=== PATIENT | female | born 1935 | race Caucasian/White ===

== ENCOUNTER 2016-09-24 20:45 | Emergency (ER) | payer MEDICARE ==
[2016-09-24] MEDS ORDERED: Morphine INJ* 10 MG/ML 1 ML SYRINGE IM ONE ×2 (21:06→22:22)
--- NOTE | 2016-09-24 21:49 | RAD ---
INDICATION: Right wrist injury COMPARISON: None TECHNIQUE: AP and lateral views were obtained. FINDINGS: There is a comminuted intra-articular fracture the distal radius with impaction and angular deformity. There is volar angulation fracture apex There is also an impacted and comminuted distal ulnar fracture. There is soft tissue swelling with deformity. IMPRESSION: INTRA-ARTICULAR FRACTURES OF DISTAL RADIUS AND ULNAR DESCRIBED.
[2016-09-24 23:50] VITALS: BP 131/63
[2016-09-25] MEDS ORDERED: HYDROcodone/ACETAMIN 5-325 MG* 1 TAB PO ONE (00:37)
--- NOTE | 2016-09-25 08:03 | RAD ---
HISTORY: Post reduction, right wrist trauma COMPARISONS: September 24, 2016 9:35 PM VIEWS: 5, Frontal, lateral, and oblique views of the right wrist performed in a cast which appears fine bone detail FINDINGS: BONE DENSITY: There is diffuse osteopenia. BONES: Again noted is an angulated and displaced, fracture of the distal radial metaphysis with persistent dorsal angulation. 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 ALIGNMENT: There is no dislocation. SOFT TISSUES: Unremarkable. OTHER FINDINGS: None. IMPRESSION: PERSISTENT FRACTURES OF THE DISTAL RADIUS AND ULNA
--- NOTE | 2016-10-09 20:59 | ED ---
Dev Live Michael, scribed for Julius Castelan MD on 09/24/16 at 2128 . Adult Trauma - HPI Summary HPI Summary: 81 y/o female was BIBA to the ED after a mechanical fall in the shower tonight. The pt reports that she fell on her RUE and right hip. She was unable to stand after the fall, and she had to call from the shower until halfway staff found her. The right wrist pain started immediately and is aggravated with movement/palpation. The pt denies LOC and head trauma. She recently has not had mechanical falls. - History of Current Complaint Stated Complaint: FALL Time Seen by Provider: 09/24/16 21:05 Hx Obtained From: Patient, Medical Records Mechanism of Injury: Fall Ambulatory at the Scene: Yes Loss of Consciousness: no loss of consciousness Onset/Duration: Started Minutes Ago, Still Present Onset of Pain: Immediate Onset Severity: Moderate Current Severity: Moderate Location: Extremities - right wrist Aggravating Factor(s): Movement, Palpation Associated Signs & Symptoms: Positive: Negative - head trauma, Other: - right wrist pain. Negative: Loss of Consciousness PMH/Surg Hx/FS Hx/Imm Hx Infectious Disease History: Denies: Traveled Outside the [place] in Last 30 Days Review of Systems Negative: Fever, Chills Negative: Erythema Negative: Sore Throat Negative: Chest Pain Negative: Shortness Of Breath, Cough Negative: Abdominal Pain, Vomiting, Nausea Negative: dysuria, hematuria Positive: Other - right wrist pain Negative: Rash Neurological: Other - no dizziness All Other Systems Reviewed And Are Negative: Yes Physical Exam - Summary Physical Exam Summary: Constitutional: Well-developed, Well-nourished, Alert. (-) Distressed Skin: Warm, Dry HENT: Normocephalic; Atraumatic Eyes: Conjunctiva normal Neck: Musculoskeletal ROM normal neck. (-) JVD, (-) Stridor, (-) Tracheal deviation Cardio: Rhythm regular, rate normal, Heart sounds normal; Intact distal pulses; The pedal pulses are 2+ and symmetric. Radial pulses are 2+ and symmetric. ~(-) Murmur Pulmonary/Chest wall: Effort normal. (-) Respiratory distress, (-) Wheezes, (-) Rales Abd: Soft, (-) Tenderness, ~(-) Distension, (-) Guarding, (-) Rebound Musculoskeletal: swelling over the dorsum of right wrist with some ROM and no adolph tenderness. Lymph: (-) Cervical adenopathy Neuro: Alert, Oriented x3 Psych: Mood and affect Normal Triage Information Reviewed: Yes Vital Signs Reviewed: Yes Diagnostics - Laboratory Lab Statement: Any lab studies that have been ordered have been reviewed, and results considered in the medical decision making process. - Radiology R wrist XR Xray Interpretation: Positive (See Comments) - INTRA-ARTICULAR FRACTURES OF DISTAL RADIUS AND ULNAR DESCRIBED. Radiology Interpretation Completed By: Radiologist Repeat R wrist XR Xray Interpretation: Positive (See Comments) - slightly improved alignment Radiology Interpretation Completed By: ED Physician Adult Trauma Course/Dx - Course Course Of Treatment: Consulted Dr. Negro at 2230- Dr. Negro wants to reduce the wrist-hang hand and fingers in trap to reduce weight. She will see the pt on Tuesday09/28/16. Wrist reduction procedure-split on wrist fx used finger traps 3 inch fiber glass 36 cm. Family was warned about median nerve entrapment syndrome. They should return to the ED if these symptoms become present. The pt was also ambulated and had no hip pain. - Diagnoses Provider Diagnoses: Fracture, ulna, distal, Distal radius fracture, right Discharge - Discharge Plan Condition: Stable Disposition: HOME Patient Education Materials: Wrist Fracture in Adults (ED) Referrals: Alma Delia Negro MD [Medical Doctor] - Additional Instructions: You will follow up with Dr. Negro on Tuesday09/28/16. Please Return to the ED for worsening symptoms. The documentation as recorded by the Dev burnett Michael accurately reflects the service I personally performed and the decisions made by , Julius Castelan MD.
== END 2016-09-25 01:13 | disposition home or self-care (01) ==
LOC: ED 20:45
DX: S52.601A Unspecified fracture of lower end of right ulna, initial encounter for closed fracture (principal); S52.501A Unspecified fracture of the lower end of right radius, initial encounter for closed fracture; W19.XXXA Unspecified fall, initial encounter; Y93.9 Activity, unspecified; Y92.9 Unspecified place or not applicable
CPT/HCPCS: 96372; 99283; J2270

== ENCOUNTER 2016-10-01 08:17 | Day surgery (SDC) | payer MEDICARE ==
--- NOTE | 2016-09-30 16:38 | HP ---
PREOPERATIVE HISTORY AND PHYSICAL: DATE OF SURGERY/ADMISSION: 10/01/16 [facility] DATE OF OFFICE VISIT/ENCOUNTER: 09/30/16 ATTENDING SURGEON: Norah Mercado MD PROCEDURE: Open reduction internal fixation, right wrist. CHIEF COMPLAINT: Right wrist pain after fall. HISTORY OF PRESENT ILLNESS: This is an 81-year-old demented woman who resides at [facility]. She complains of an injury to her right wrist recently after she fell. She was seen at the [facility] Emergency Room, where x-rays revealed a distal radius fracture which is extraarticular. A reduction was attempted in the emergency room and she was placed in a sugar-tong splint, referred to Dr. Mercado for further evaluation and treatment consideration. After the reduction, her alignment improved only slightly. There is still considerable displacement of the fracture. The patient denies any numbness or tingling. After evaluation and consultation with Dr. Mercado, the patient and the patient's son and have consented to proceed with surgical intervention in the form of an open reduction internal fixation, right distal radius. PAST MEDICAL HISTORY: 1. History of AL 20 years ago. 2. Dementia. PAST SURGICAL HISTORY: 1. Cholecystectomy. 2. Appendectomy. 3. Hysterectomy. MEDICATIONS: 1. Acetaminophen 500 mg 2 tabs 3 times a day p.r.n. 2. Aripiprazole 5 mg 1 tab q.h.s. 3. Aspirin adult low dose daily. 4. Losartan potassium. 5. Nuedexta. 6. Sertraline HCl. 7. Vitamin D3. ALLERGIES: No known drug allergies. FAMILY MEDICAL HISTORY: Noncontributory. SOCIAL HISTORY: The patient resides at [facility]. She denies tobacco use, recreational drug use, and alcohol use. REVIEW OF SYSTEMS: General: Negative for fevers, chills, or night sweats. No known anesthesia problems. HEENT: Negative for headache, lightheadedness or syncopal episodes. Integumentary: Negative for abrasions, lesions, or open wounds. Cardiothoracic: Positive for history of an AL. Negative for chest pain, palpitations, or edema. Negative for hypertension. Pulmonary: Negative for shortness of breath with exertion, chronic cough, or COPD. GI: Negative for nausea, vomiting, diarrhea, constipation, or GERD. : Negative for nocturia, urinary frequency, urgency, history of UTIs or kidney problems. Musculoskeletal: Positive for current complaint. Negative for chronic or intermittent back pain. No history of fractures. Neurological: Positive for dementia. Negative for paresthesias, numbness, history of seizure, stroke, or epilepsy. Endocrine: Negative for diabetes or thyroid issues. Hematologic: Negative for easy bruising, anemia, excessive bleeding, or history of DVT. Infectious Disease: Negative for history of MRSA, hepatitic C, or HIV. PHYSICAL EXAMINATION GENERAL: A well-developed, well-nourished 81-year-old female, in no acute distress. VITAL SIGNS: Height 5 feet 4 inches, weight 153 pounds, pulse rate 88, blood pressure 140/86. HEENT: Normocephalic, atraumatic. Pupils are equal, round, and reactive to light and accommodation. Extraocular movements are intact. NECK: Supple. No palpable lymph nodes. Throat is clear. PULMONARY: Lungs are clear to auscultation bilaterally. No wheezes, rales, or rhonchi. CARDIOTHORACIC: Regular rate and rhythm. S1, S2. No murmurs, rubs, or gallops. No edema. ABDOMEN: Positive bowel sounds, soft, nontender. NEUROLOGIC: Alert. Cranial nerves II through XII are intact. Sensation is intact to light touch. MUSCULOSKELETAL: On exam of the right upper extremity, she has ecchymosis and swelling at the wrist. She has a palpable step-off at the fracture site. Fingers have minimal swelling. She can make a closed fist. Neurovascular function is intact. Skin is intact. No tenderness at the elbow. IMAGING STUDIES: X-rays: AP, lateral and oblique of the right wrist show markedly displaced and mildly angulated fracture of the distal radius, which is extraarticular. IMPRESSION: Right distal radius fracture. PLAN: The patient is scheduled to undergo an open reduction internal fixation, right wrist with Dr. Mercado on 10/01/16. The patient will return to the office in 10 to 14 days postop for followup and suture removal. A prescription for [place] was printed and sent with the patient's to [facility]. It will be filled by the [facility] physicians for use postoperatively. NASRA HANSEN [id number]/[facility] #: [id number] MAURICIO
[~2016-10-01 08:17] MED LIST: Buffered Lidocaine 1% SYR 3ML* 3 ML/SYR SYRINGE INTRADERM ONE; Dexamethasone IV* 4 MG/ML 1 ML (4 MG) IV SLOW PU ONE; Famotidine IV* 10 MG/ML 2 ML (20 mg) IV ONE
[2016-10-01] MEDS ORDERED: ceFAZolin 2 GM PREMIX (*) 2 GM/50 ML BAG IVPB ONE (09:59)
[2016-10-01] MEDS ORDERED: Dexamethasone IV* 4 MG/ML 1 ML (4 MG) ONE (09:59)
[2016-10-01] MEDS ORDERED: Famotidine IV* 10 MG/ML 2 ML (20 mg) ONE (09:59)
[2016-10-01] MEDS ORDERED: Bupivacaine 0.5% SDV PF* 30 ML VIAL ONE (10:04)
[2016-10-01] MEDS ORDERED: Remifentanil* 2 MG VIAL ONE (10:18)
[2016-10-01] MEDS ORDERED: ROPIVACAINE 5 MG/ML 30 ML BTL (0.5%) ONE (10:18)
[2016-10-01 12:47] VITALS: BP 121/50
--- NOTE | 2016-10-01 20:59 | OP ---
DATE OF OPERATION: 10/01/16 [facility] DATE OF : 31 SURGEON: Norah Mercado MD RESIDENTIAL DESIGNER: NASRA Tadeo ANESTHESIOLOGIST: Alvarado Ibrahim MD ANESTHESIA: Block. PRE-OP DIAGNOSIS: Right distal radius fracture, displaced. POST-OP DIAGNOSIS: Right distal radius fracture, displaced. OPERATIVE PROCEDURE: Open reduction internal fixation of the right distal radius. INDICATIONS: Pam is an 81-year-old woman who fell and suffered a fracture of her right distal radius; closed reduction was unsuccessful. She presents for open reduction and internal fixation of the distal radius. ESTIMATED BLOOD LOSS: Zero. TOURNIQUET TIME: About 30 minutes. DESCRIPTION OF PROCEDURE: The patient was brought to the operating room, was given a block anesthetic, and placed in the supine position on the operating table with the tourniquet around her right upper arm. The skin of her right upper extremity was prepped and draped in the usual sterile fashion. The hand and forearm were exsanguinated and the tourniquet was elevated to 250 mmHg. A longitudinal incision was made over the FCR tendon. We dissected sharply through the superficial and deep portion of the FCR tendon sheath. The flexor tendons were retracted ulnarly and then the pronator quadratus was subperiosteally dissected off the distal radius. The fracture fragments were reduced with traction and manipulation and then a 6-hole narrow plate from the [employer] 2.4 variable angle set was secured to the shaft with a single proximal screw. The position of the hardware and fracture fragment was checked on the C- arm and found to be satisfactory. Four additional distal screws were placed and then two more proximal screws. Again, the position of the hardware and fracture fragments was checked on the C-arm in the AP and lateral views and there was anatomic reduction. The wound was irrigated. Pronator quadratus was repaired over the plate with 2-0 Polysorb suture. The FCR tendon sheath was closed with 2-0 Polysorb suture and the skin edges were reapproximated with 4-0 nylon suture. The wound was dressed with Xeroform, 4x4, Webril, and a volar splint. The patient tolerated the procedure well, was brought to the recovery room in good condition. [id number]/[facility] #: [id number] [facility]
--- NOTE | 2016-10-04 15:34 | RAD ---
INDICATION: Traumatic fracture of the right wrist, operative reduction and internal fixation. COMPARISON: Comparison is made with a prior x-ray study of the right wrist from September 25, 2016. TECHNIQUE: 24 seconds of intermittent fluoroscopic guidance were provided and 2 spot films of the right wrist were obtained in the operating room. FINDINGS: The patient is status post operative reduction and internal fixation of a comminuted displaced fracture of the distal radial metaphysis. There is a metallic plate present along the anterior aspect of the distal radius transfixed with multiple screws spanning the fracture fragments which appear to be in normal alignment. IMPRESSION: INTRAOPERATIVE CONTROL FILMS. CPT II Codes: 6045F
== END 2016-10-01 12:35 | disposition home or self-care (01) ==
LOC: OREAST 08:17
PROVIDERS: ATTEND Orthopaedic Surgery
DX: S52.501A Unspecified fracture of the lower end of right radius, initial encounter for closed fracture (principal); I25.10 Atherosclerotic heart disease of native coronary artery without angina pectoris; I25.2 Old myocardial infarction; E03.9 Hypothyroidism, unspecified; W19.XXXA Unspecified fall, initial encounter; Y92.9 Unspecified place or not applicable
CPT/HCPCS: 76000; C1713; C1776; J0690; J1100; J2795

== ENCOUNTER 2017-11-15 04:08 | Inpatient (IN) | payer MEDICARE, MEDICAID ==
[2017-11-15] MEDS ORDERED: NS 0.9% 1000 ML* 1,000 ML IV ONE (04:33)
[2017-11-15 05:16] LABS: ABS Basophils 0 10^3/ul (0-0.2); ABS Eosinophils 0 10^3/ul (0-0.6); ABS Lymphocytes 1.5 10^3/ul (1.0-4.8); ABS Monocytes 1.3 10^3/ul (0-0.8); ABS Neutrophils 13.6 10^3/ul (1.5-7.7); ABS Nucleated RBC 0 10^3/ul; Eosinophil % 0.1 % (0-6); Hematocrit 32 % (35-47); Hemoglobin 10.7 g/dl (12.0-16.0); Lymphocyte % 8.9 % (25-47); Mean Corpuscular HGB Conc 33 g/dl (31-36); Mean Corpuscular Hemoglobin 30 pg (27-31); Mean Corpuscular Volume 90 fL (80-97); Mean Platelet Volume 8.2 um3 (7.4-10.4); Nucleated Red Blood Cells % 0; Platelet Count 221 10^3/ul (150-450); Red Blood Count 3.57 10^6/ul (4.0-5.4); Red Cell Distribution Width 15 % (10.5-15); White Blood Count 16.4 10^3/ul (3.5-10.8)
[2017-11-15 05:24] LABS: INR 0.84 (0.77-1.02)
[2017-11-15 05:27] LABS: EGFR Non-African American 52.2 (>60)
[2017-11-15] MEDS ORDERED: NS 0.9% w/ 20 Meq KCL 1000 ML* 1,000 ML IV SCH (06:00)
[2017-11-15] MEDS ORDERED: Iodixanol* (CONTRAST) 320 MG/ML 100 ML SDV IV ONE (06:14)
[2017-11-15] MEDS ORDERED: Levofloxacin 500 MG IVPREMIX(* 500 MG/100 ML BAG IVPB ONE (06:58)
[2017-11-15] MEDS ORDERED: metroNIDAZOLE IV 500 MG/100ML* 500 MG/100 ML BAG IVPB ONE (06:59)
--- NOTE | 2017-11-15 08:13 | RAD ---
INDICATION: Abdominal pain and distention COMPARISON: None TECHNIQUE: Axial source images were obtained from the hemidiaphragms to the symphysis pubis following administration of oral and intravenous contrast. 80 mL Visipaque 320 was utilized. Coronal and sagittal reconstructed images were acquired. Lung bases: There are mild emphysematous changes in lung bases. The heart is enlarged. There are consultations at the cardiac apex in addition to coronary calcifications. There are small pericardial effusion. Liver: The liver is normal in size. There are no masses. There is no mild intrahepatic ductal dilatation. This may be related to post cholecystectomy state. Gallbladder: Cholecystectomy. Spleen: The spleen is normal in size. There are no masses. Pancreas: There is no focal pancreatic mass or ductal dilatation. Adrenal glands: There is no evidence of adrenal mass. Kidneys: The kidneys are normal in size and position. There are prompt nephrograms and there is prompt excretion bilaterally. There is a 3.8 cm corticomedullary cyst in lower pole of the. There is no evidence of nephrolithiasis. Adenopathy: There is no evidence of adenopathy by size criteria. Fluid collections: There are no free or localized fluid collections. Vessels:The IVC appears normal. There are atherosclerotic changes with a small fusiform aneurysm of the infrarenal abdominal aorta measuring 3.0 x 2.9 cm in transverse dimensions there is significant origin disease of both the celiac axis and the SMA. Both are patent. The EFFIE is patent as well. GI tract: Evaluation of the bowel is limited without oral contrast. The upper GI tract is grossly normal. There are fluid-filled loops of small bowel. The small bowel is normal in caliber.There is significant distention of the colon which is stool and air-filled. The cecum measures 10 cm. There is pneumatosis most conspicuous about the right colon. There is no evidence of free intraperitoneal air. Pelvic organs: Presumed hysterectomy. No adnexal mass Bladder: There are no bladder masses. Abdominal and pelvic soft tissues: The extraperitoneal abdominal and pelvic soft tissues appear normal.. Osseous structures: There are no acute osseous findings. Other: None IMPRESSION: 1. Cardiomegaly with calcifications left ventricular apex. Coronary calcifications. 2. Mild intrahepatic dilatation likely related to postcholecystectomy state. 3. 3.8 cm cortical medullary cysts lower pole right kidney. 4. Nonspecific pneumatosis and colonic dilatation. These findings can be seen with bowel ischemia although there are no localizing findings and, although the visceral branches show atherosclerotic changes, there is vessel patency. No free intraperitoneal air. Suggest close follow-up. 5. Small abdominal aortic aneurysm. 6. Hysterectomy
[2017-11-15] MEDS ORDERED: NS 0.9% 1000 ML* 1,000 ML IV SCH (08:15)
[2017-11-15] MEDS ORDERED: Acetaminophen TAB* 325 MG PO PRN (08:16)
[2017-11-15] MEDS ORDERED: LORazepam INJ* 2 MG/ML 1 ML VIAL IV PUSH ONE (08:41)
[2017-11-15] MEDS ORDERED: KCL 20 MEQ/100 ML IVPREMIX* 20 MEQ/100 ML BAG IV SCH (09:00)
[2017-11-15 10:00] LABS: Urine Appearance Cloudy; Urine Blood Negative (Negative); Urine Color Yellow; Urine Ketones Negative (Negative); Urine Protein 1+(30 mg/dL) (Negative); Urine Specific Gravity 1.038 (1.010-1.030); Urine Urobilinogen Negative (Negative)
[2017-11-15] MEDS ORDERED: Potassium Chloride IV* 40 MEQ in NS 0.9% 250 ML* 250 ML IVPB ONE (10:00)
--- NOTE | 2017-11-15 11:08 | HP ---
ADMISSION HISTORY AND PHYSICAL: DATE OF ADMISSION: 11/15/17 PRIMARY CARE PROVIDER: Dr. Emerita Abreu. HEALTHCARE PROXY: Lorraine Telles, her daughter. CODE STATUS: DNR/DNI, MOLST reviewed and updated in the chart. SOURCE OF INFORMATION: History obtained from review of [facility] records, review of [facility] records, discussion with Brady Arredondo. RELIABILITY: Fair to poor. CHIEF COMPLAINT: Abdominal distention and abdominal pain. HISTORY OF PRESENT ILLNESS: This is an 82-year-old female with past medical history of advanced dementia, essentially averbal, depression, hypothyroidism, and noted history of constipation, who was noted over the last 48 hours to have decreasing p.o. intake and slightly less responsive. At baseline, she usually sits with her eyes closed; however, yesterday kept her eyes closed majority of the day and was eating less. Overnight, she was noted to have abdominal distention with pain on palpation, was referred to the emergency room for further evaluation, since they were unable to obtain a urgent abdominal film in [facility]. In the emergency room, she was seen and remains averbal and grimaces with abdominal palpation; otherwise, was not able to contribute meaningfully to her HPI. Per review with [facility], she had 4 bowel movements on 11/12/17 that were noted to be large and loose, although additionally noted she drinks prune juice every day and her bowel movements were usually loose. Yesterday, on 11/14/17, she had a medium bowel movement. She has had no bowel movements recorded since admission to the emergency room. CAT scan was obtained , notable for presence of pneumatosis intestinalis as well as diffuse abdominal distention. PAST MEDICAL HISTORY: Reviewed from [facility]: 1. Hypertension. 2. CAD 20 years prior, not on aspirin. 3. Advanced dementia. 4. Depression. 5. Hypothyroidism. 6. Constipation. 7. History of cholecystectomy. 8. Appendectomy. 9. Hysterectomy. 10. ORIF of her right wrist. MEDICATIONS: Reviewed from [facility]: 1. Nystatin powder topically bilateral breasts twice daily. 2. Miconazole cream 2% topically between toes twice daily. 3. Levothyroxine 100 mcg every day before dinner. 4. Senna with docusate 2 tabs at bedtime. 5. Losartan 50 mg daily. 6. Biofreeze Roll-On gel for left knee twice daily for pain. 7. Acetaminophen 1000 mg twice daily for pain. 8. Aripiprazole 5 mg daily. 9. Zoloft 150 mg daily. 10. Mineral cream applied to lower legs as needed for dry skin. 11. Tramadol 25 mg every 6 hours as needed for pain. ALLERGIES: To ALLOPURINOL. FAMILY HISTORY: Unable to obtain from the patient. SOCIAL HISTORY: No alcohol, illicit's, or tobacco. Lives at [facility]. REVIEW OF SYSTEMS: Unable to obtain from the patient. From [facility], notable for decreased p.o. intake. Denies nausea, vomiting, diarrhea. Loose stools noted on 11/12/17, not abnormal. No noted fevers, chills, night sweats, or changes in her urinary status. At baseline, drinks very little fluid. PHYSICAL EXAMINATION GENERAL: Elderly female, lying flat on bed, eyes closed. VITAL SIGNS: In the emergency room, 169/86, heart rate 86, respiratory rate 24 , she is 96% on room air, T-max 99.2. HEENT: Oropharynx is dry. NECK: Non-elevated JVD. No cervical or supraclavicular lymphadenopathy. LUNGS: Her lungs are clear to auscultation bilaterally. HEART: She has regular rate and rhythm. No murmurs, rubs, or gallops. ABDOMEN: Distended. Positive bowel sounds in all 4 quadrants, tenderness in all 4 quadrants to deep palpation. EXTREMITIES: Warm and well perfused. No clubbing, cyanosis, or edema. NEUROLOGIC: She is alert and oriented x0. Unable to tell me her name. Unable to follow commands. Does move all extremities spontaneously. SKIN: No skin breakdown noted. DIAGNOSTIC STUDIES/LAB DATA: Labs reviewed: Notable for lactic acid 1.7. CRP 148. Amylase is elevated at 129, lipase 30. BUN 57, creatinine 1.0, potassium 3.0, bicarb 17. White blood cell count is 16.4, 82% neutrophils, hemoglobin 10.7, and platelets 221. Data reviewed: CT abdomen and pelvis with IV contrast, no p.o., pneumatosis intestinalis, diffuse distention, potentially fecal impaction. Final report pending. ASSESSMENT AND PLAN: This is an 82-year-old female with history of constipation , advanced dementia, presenting with abdominal distention, tenderness to palpation, found incidentally with evidence of pneumatosis intestinalis with a normal lactic acid. 1. Pneumatosis intestinalis. Suspect in the setting of diffuse abdominal distention, not ischemic bowel in the absence of lactic acidosis. Suspect maybe in the setting of constipation, which she has a history of; however, has been moving bowels consistently over the last 48 hours, potentially, fecal impaction. We will start with maintaining the patient n.p.o. as well as soapsuds enema in an attempt at disimpaction. Continue Flagyl 500 mg 3 times daily. Transition to oral when able to tolerate. There is benefit for feeding with elemental diet. Place Nutrition consult for assistance. 2. Constipation. As noted above, start with soapsuds enema and follow. Add a TSH to ED labs. 3. Leukocytosis. Suspect in the setting of above. Urine is still pending. Straight cath for urine. I would additionally check chest x-ray 2 views for other evidence of infection. 4. Hypertension. Continue losartan. 5. Dementia. Continue aripiprazole as well as sertraline. 6. Code status. DNR. MOLST updated. [id number] #: [id number] MTDD
[2017-11-15] MEDS: Sertraline* 100 MG TAB PO SCH (11:23)
[2017-11-15] MEDS: ARIPiprazole TAB* 5 MG PO SCH (11:23)
[2017-11-15] MEDS: Losartan TAB* 25 MG PO SCH (11:23)
--- NOTE | 2017-11-15 11:24 | RAD ---
INDICATION: Abdominal distention and elevated white count evaluate for pneumonia. COMPARISON: There are no prior studies available for comparison. TECHNIQUE: AP and lateral views of the chest were obtained. FINDINGS: The heart appears moderately enlarged. The lungs are underinflated and grossly clear. No pleural effusion is seen. IMPRESSION: CARDIOMEGALY, NO EVIDENCE FOR ACUTE FINDING.
[2017-11-15] MEDS: Heparin VIAL(*) 5000 UNITS/ML VIAL (FIVE THOUSAND) SUBCUT SCH ×2 (16:36→21:44)
[2017-11-15] MEDS: metroNIDAZOLE IV 500 MG/100ML* 500 MG/100 ML BAG IVPB SCH (17:52)
--- NOTE | 2017-11-15 21:52 | ED ---
Bernard Live Stephanie, scribed for Kinsey Escobar MD on 11/15/17 at 0432 . Abdominal Pain/Female - HPI Summary HPI Summary: The pt is an 82 y/o F BIBA from [facility] with c/o abd distension per staff at [facility]. Pt has a hx of dementia and is non-verbal. Last BM yesterday. HPI limited due to pt being non-verbal. - History of Current Complaint Chief Complaint: EDAbdPain Stated Complaint: ABD PAIN Time Seen by Provider: 11/15/17 04:12 Hx Obtained From: Patient ?: No Onset/Duration: Gradual Onset Timing: Constant Severity Currently: Moderate Pain Intensity: 0 Pain Scale Used: 0-10 Numeric Location: Diffuse Radiates: No Aggravating Factor(s): Nothing Alleviating Factor(s): Nothing Allergies/Adverse Reactions: Allergies Allergy/AdvReac Type Severity Reaction Status Date / Time allopurinol Allergy Rash Verified 11/15/17 04:23 PMH/Surg Hx/FS Hx/Imm Hx Endocrine/Hematology History: Reports: Hx Thyroid Disease - hypothryroid, uses medication Cardiovascular History: Reports: Hx Hypertension - uses medication Sensory History: Reports: Hx Contacts or Glasses - wears glasses Denies: Hx Hearing Aid Opthamlomology History: Reports: Hx Contacts or Glasses - wears glasses Neurological History: Reports: Other Neuro Impairments/Disorders - dementia,at [facility] since February 2015 Psychiatric History: Reports: Hx Depression - uses medication - Surgical History Surgery Procedure, Year, and Place: hysterectomy 30 years ago. gallbladder approx 30 years ago. appendix as a child Hx Anesthesia Reactions: No Infectious Disease History: No Infectious Disease History: Denies: Traveled Outside the [place] in Last 30 Days - Family History Known Family History: Positive: Unknown - Unable to obtain. - Social History Occupation: Retired Lives: At [facility] Alcohol Use: None Hx Substance Use: No Substance Use Type: Reports: None Hx Tobacco Use: No Smoking Status (MU): Never Smoked Tobacco Have You Smoked in the Last Year: No Review of Systems Negative: Fever Positive: Abdominal Pain, Other - distended abd Negative: Slurred Speech All Other Systems Reviewed And Are Negative: Yes Physical Exam - Summary Physical Exam Summary: VITAL SIGNS: Reviewed. GENERAL: Patient is a well-developed and nourished FEMALE who is lying comfortable in the stretcher. Patient is not in any acute respiratory distress. HEAD AND FACE: No signs of trauma. No ecchymosis, hematomas or skull depressions. No sinus tenderness. EYES: PERRLA, EOMI x 2, No injected conjunctiva, no nystagmus. EARS: Hearing grossly intact. Ear canals and tympanic membranes are within normal limits. MOUTH: Oropharynx within normal limits. NECK: Supple, trachea is midline, no adenopathy, no JVD, no carotid bruit, no c- spine tenderness, neck with full ROM. CHEST: Symmetric, no tenderness at palpation LUNGS: Clear to auscultation bilaterally. No wheezing or crackles. CVS: Regular rate and rhythm, S1 and S2 present, no murmurs or gallops appreciated. ABDOMEN: Soft, abd distended. Diffuse tenderness with hyperactive bowel sounds. No rebound no guarding, and no masses palpated. EXTREMITIES: FROM in all major joints, no edema, no cyanosis or clubbing. NEURO: non-verbal but alert. No acute neurological deficits. SKIN: Dry and warm Triage Information Reviewed: Yes Vital Signs On Initial Exam: Initial Vitals Temp Pulse Resp BP Pulse Ox 98.6 F 81 30 158/84 97 11/15/17 04:14 11/15/17 04:14 11/15/17 04:14 11/15/17 04:14 11/15/17 04:14 Vital Signs Reviewed: Yes Diagnostics - Vital Signs Vital Signs Temp Pulse Resp BP Pulse Ox 11/15/17 04:14 98.6 F 81 30 158/84 97 - Laboratory Result Diagrams: 11/15/17 04:45 11/15/17 04:45 Lab Statement: Any lab studies that have been ordered have been reviewed, and results considered in the medical decision making process. - CT Abd/Pelvis CT Interpretation: Positive (See Comments) CT Interpretation Completed By: Radiologist - Pneumatosis in the wall of the colon with colonic distention. This finding is nonspecific but may reflect bowel ischemia; however there is enhancement in the superior and inferior mesenteric arteries. Abdominal Pain Fem Course/Dx - Course Course Of Treatment: The pt is an 82 y/o F BIBA from [facility] with c/o abd distension per staff at [facility]. Pt has a hx of dementia and is non-verbal. Last BM yesterday. HPI limited due to pt being non-verbal. This pt will be signed out to Dr. Mijares at shift change pending disposition. - Diagnoses Provider Diagnoses: Colitis Discharge - Sign-Out/Discharge Documenting (check all that apply): Sign-Out Patient Signing out patient TO: Danny Mijares - Pending dispo. - Discharge Plan Condition: Stable Referrals: No Primary Care Phys,NOPCP [Primary Care Provider] - The documentation as recorded by the Bernard burnett Stephanie accurately reflects the service I personally performed and the decisions made by me, Kinsey Escobar MD.
[2017-11-15] MEDS: Senna TAB PO SCH (21:57)
[2017-11-16] MEDS: metroNIDAZOLE IV 500 MG/100ML* 500 MG/100 ML BAG IVPB SCH ×3 (01:09→16:10)
[2017-11-16] MEDS: Levothyroxine TAB* 100 MCG TAB PO SCH (06:08)
[2017-11-16] MEDS: Heparin VIAL(*) 5000 UNITS/ML VIAL (FIVE THOUSAND) SUBCUT SCH ×3 (06:08→21:10)
[2017-11-16 07:25] LABS: Hematocrit 33 % (35-47); Hemoglobin 10.9 g/dl (12.0-16.0); Mean Corpuscular HGB Conc 33 g/dl (31-36); Mean Corpuscular Hemoglobin 30 pg (27-31); Mean Corpuscular Volume 90 fL (80-97); Mean Platelet Volume 8.1 um3 (7.4-10.4); Platelet Count 244 10^3/ul (150-450); Red Blood Count 3.64 10^6/ul (4.0-5.4); Red Cell Distribution Width 15 % (10.5-15); White Blood Count 11.3 10^3/ul (3.5-10.8)
[2017-11-16] MEDS: Sertraline* 100 MG TAB PO SCH (07:49)
[2017-11-16] MEDS: Losartan TAB* 25 MG PO SCH (07:49)
[2017-11-16] MEDS: ARIPiprazole TAB* 5 MG PO SCH (07:49)
--- NOTE | 2017-11-16 13:50 | PN ---
Subjective Date of Service: 11/16/17 Interval History: No BM Has not been interactive. Not eating. Abdomen remains distended and tender Objective Active Medications: Acetaminophen (Tylenol Tab*) 650 mg PO Q4H PRN PRN Reason: FEVER/PAIN Aripiprazole (Abilify Tab*) 5 mg PO DAILY [facility] Last Admin: 11/16/17 07:49 Dose: 5 mg Heparin Sodium (Porcine) (Heparin Vial(*)) 5,000 units SUBCUT Q8HR [facility] Last Admin: 11/16/17 06:08 Dose: 5,000 units Metronidazole/Sodium Chloride (Flagyl 500 Mg Ivpb*) 500 mg in 100 mls @ 100 mls /hr IVPB Q8H [facility] Last Admin: 11/16/17 07:49 Dose: 100 mls/hr Levothyroxine Sodium (Synthroid Tab*) 100 mcg PO DAILY@0600 [facility] Last Admin: 11/16/17 06:08 Dose: 100 mcg Losartan Potassium (Cozaar Tab*) 50 mg PO DAILY [facility] Last Admin: 11/16/17 07:49 Dose: 50 mg Senna (Senokot Tab*) 2 tab PO BEDTIME [facility] Last Admin: 11/15/17 21:57 Dose: 2 tab Sertraline HCl (Zoloft*) 150 mg PO DAILY [facility] Last Admin: 11/16/17 07:49 Dose: 150 mg Vital Signs - 8 hr 11/16/17 11/16/17 07:59 12:10 Temperature 98.4 F 97.9 F Pulse Rate 87 76 Respiratory 20 19 Rate Blood Pressure 157/76 122/58 (mmHg) O2 Sat by Pulse 97 95 Oximetry Oxygen Devices in Use Now: None Appearance: ill appearing Eyes: No Scleral Icterus, PERRLA Ears/Nose/Mouth/Throat: - - dry MM Neck: NL Appearance and Movements; NL JVP Respiratory: Symmetrical Chest Expansion and Respiratory Effort, Clear to Auscultation Cardiovascular: RRR Abdominal: - - distended, hyperactive BS, TTP Extremities: No Edema Skin: No Rash or Ulcers Neurological: - - AOx0 Result Diagrams: 11/16/17 06:51 11/16/17 06:51 Microbiology and Other Data: Microbiology 11/15/17 11:50 Nasal Screen MRSA (PCR)(CYRUS) - Final Nasal Mrsa Not Detected Assess/Plan/Problems-Billing Assessment: 82 yo F h/o dementia, HTN, constipation p/w distended abdomen found with pneumatosis coli and grossly distended belly - Patient Problems (1) Pneumatosis coli Comment: Suspect in setting of distended abdomen. Normal lactic acid on presentation argues against ischemic bowel Appreciate surgery consultation. Rectal tube placement to decompress and hopefully provide comfort Prognosis poor. c.w flagyl IV If she can tolerate PO diet will order elemental diet (takes 24 hours to receive ) otherwise NG tube inconsistent with previously goals as discussed yesterday with family. (2) Dementia Comment: advanced (3) Hypertension Comment: not tolerating PO meds (4) DVT prophylaxis Comment: HSQ
[2017-11-16] MEDS: Senna TAB PO SCH (21:10)
[2017-11-17] MEDS: metroNIDAZOLE IV 500 MG/100ML* 500 MG/100 ML BAG IVPB SCH ×2 (00:42→09:09)
[2017-11-17] MEDS: Levothyroxine TAB* 100 MCG TAB PO SCH (06:00)
[2017-11-17] MEDS: Heparin VIAL(*) 5000 UNITS/ML VIAL (FIVE THOUSAND) SUBCUT SCH ×2 (06:00→14:01)
[2017-11-17] MEDS ORDERED: cefTRIAXone(*) 1 GM in NS 0.9% 50 ML* 50 ML IVPB SCH (09:00)
[2017-11-17] MEDS: Morphine ORAL CONCENTRATE* 5 MG/0.25 ML ORAL.SYRIN SL PRN ×3 (09:23→22:37)
[2017-11-17] MEDS: Sertraline* 100 MG TAB PO SCH (09:26)
[2017-11-17] MEDS: ARIPiprazole TAB* 5 MG PO SCH (09:26)
[2017-11-17] MEDS: Losartan TAB* 25 MG PO SCH (09:26)
[2017-11-17] MEDS: Acetaminophen SUPP* 650 MG SUPP PR PRN (09:27)
--- NOTE | 2017-11-17 12:04 | ED ---
Parker Live Angela, scribed for Danny Mijares MD on 11/15/17 at 0727 . Progress - Progress Note Progress Note: This pt was signed out by Dr. Escobar, pending disposition, awaiting lab results. Pt is a 82 y/o female presenting to [facility] EMS from [facility] for abd distension. Pt has hx of dementia and is nonverbal. Abdomen/Pelvis CT, as read by radiologist IMPRESSION: 1. Cardiomegaly with calcifications left ventricular apex. Coronary calcifications. 2. Mild intrahepatic dilatation likely related to postcholecystectomy state. 3. 3.8 cm cortical medullary cysts lower pole right kidney. 4. Nonspecific pneumatosis and colonic dilatation. These findings can be seen with bowel ischemia although there are no localizing findings and, although the visceral branches show atherosclerotic changes, there is vessel patency. No free intraperitoneal air. Suggest close follow-up. 5. Small abdominal aortic aneurysm. 6. Hysterectomy. Dr. Mijares has reviewed this radiology report. Pt has a MOLST form and states the pt is DNR and DNI. She only wants limited interventions. No feeding tube. No IV fluids. Determine the use or limitation of antibiotics. Course/Dx - Course Course Of Treatment: This pt was signed out by Dr. Escobar, he requested for me to admit the pt to the hospitalist services for diagnosis of pneumatosis intestinalis. I discussed the case with Dr. Quintero, hospitalist, who accepted the pt for admission. Pt is hemodynamically stable, alert but not oriented. - Diagnoses Provider Diagnoses: Pneumatosis intestinalis - Provider Notifications Discussed Care Of Patient With: Jvoanny Quintero Time Discussed With Above Provider: 07:28 Instructed by Provider To: Other - I discussed pt care with Dr. Quintero, who reports to obtain medical records from the assisted and he will consult on the pt. Discharge - Sign-Out/Discharge Documenting (check all that apply): Discharge - admit to [facility], Receiving Sign-Out Receiving patient FROM: Kinsey Escobar - Discharge Plan Condition: Stable Disposition: ADMITTED TO [facility] The documentation as recorded by the Parker burnett Angela accurately reflects the service I personally performed and the decisions made by co, Danny Mijares MD.
--- NOTE | 2017-11-17 12:56 | PN ---
Subjective Date of Service: 11/17/17 Interval History: Seen this AM. Large BM overnight bit leaked from around flexiseal after which rectal tube was removed Patient less interactive. She is requiring morphine for pain. She cannot make needs known Objective Active Medications: Acetaminophen (Tylenol Tab*) 650 mg PO Q4H PRN PRN Reason: FEVER/PAIN Acetaminophen (Tylenol Supp*) 650 mg OR Q6H PRN PRN Reason: FEVER Last Admin: 11/17/17 09:27 Dose: 650 mg Aripiprazole (Abilify Tab*) 5 mg PO DAILY [facility] Last Admin: 11/17/17 09:26 Dose: Not Given Heparin Sodium (Porcine) (Heparin Vial(*)) 5,000 units SUBCUT Q8HR [facility] Last Admin: 11/17/17 06:00 Dose: 5,000 units Metronidazole/Sodium Chloride (Flagyl 500 Mg Ivpb*) 500 mg in 100 mls @ 100 mls /hr IVPB Q8H [facility] Last Admin: 11/17/17 09:09 Dose: 100 mls/hr Ceftriaxone Sodium 1 gm/ (Sodium Chloride) 50 mls @ 200 mls/hr IVPB Q24H [facility] Last Admin: 11/17/17 11:42 Dose: 200 mls/hr Levothyroxine Sodium (Synthroid Tab*) 100 mcg PO DAILY@0600 [facility] Last Admin: 11/17/17 06:00 Dose: Not Given Losartan Potassium (Cozaar Tab*) 50 mg PO DAILY [facility] Last Admin: 11/17/17 09:26 Dose: Not Given Morphine Sulfate (Morphine Oral Concentrate*) 5 mg SL Q4H PRN PRN Reason: PAIN Last Admin: 11/17/17 09:23 Dose: 5 mg Senna (Senokot Tab*) 2 tab PO BEDTIME [facility] Last Admin: 11/16/17 21:10 Dose: 2 tab Sertraline HCl (Zoloft*) 150 mg PO DAILY [facility] Last Admin: 11/17/17 09:26 Dose: Not Given Vital Signs - 8 hr 11/17/17 11/17/17 11/17/17 08:00 08:33 09:23 Temperature 101.1 F 99.6 F Pulse Rate 92 Respiratory 30 28 28 Rate Blood Pressure 147/66 (mmHg) O2 Sat by Pulse 95 Oximetry 11/17/17 11:56 Temperature 99.8 F Pulse Rate 86 Respiratory 22 Rate Blood Pressure 146/63 (mmHg) O2 Sat by Pulse 96 Oximetry Oxygen Devices in Use Now: None Appearance: ill appearing Eyes: No Scleral Icterus Ears/Nose/Mouth/Throat: - - dry MM Neck: NL Appearance and Movements; NL JVP Respiratory: Symmetrical Chest Expansion and Respiratory Effort, Clear to Auscultation Cardiovascular: RRR Abdominal: - - distened but improved since yesterday, TTP throughout Neurological: - - AOx0 Result Diagrams: 11/16/17 06:51 11/16/17 06:51 Microbiology and Other Data: Microbiology 11/15/17 11:50 Nasal Screen MRSA (PCR)([facility]) - Final Nasal Mrsa Not Detected Assess/Plan/Problems-Billing Assessment: 82 yo F h/o dementia, HTN, constipation p/w distended abdomen found with pneumatosis coli and grossly distended belly - Patient Problems (1) Pneumatosis coli Comment: Suspect in setting of distended abdomen. Normal lactic acid on presentation argues against ischemic bowel Appreciate surgery consultation. Rectal tube placementment provided some decompression Prognosis poor. I duscussed at length with daughter today. Hospice consulting now as well. c.w flagyl IV (2) Dementia Comment: advanced (3) Hypertension Comment: not tolerating PO meds (4) UTI (urinary tract infection) Comment: CTX started for e. coli in urine (5) DVT prophylaxis Comment: HSQ
--- NOTE | 2017-11-17 14:32 | CONSULT ---
Palliative / Hospice Consult Ordering Provider: Jovanny Quintero - Subjective Code Status: DNR Advance Directives Location: In Chart MOLST Part A Completed: Yes - DNR MOLST Part E Completed:: Yes - DNI - History or Present Illness History or Present Illness: This 82 year old woman with advanced dementia has been living at [facility] with diagnoses of depression, hypothyroidism, HTN, CAD (remote) and severe constipation. She was pepe tto the ER on 11/15/17 because of decreased responsiveness and decreased po intake. She was found to have a distended, tender abdomen with CT scan revealing dilated colon with stool and air, but no free intraperitoneal air, and pneumatosis intestinalis. Her lactic acid was WNL and she did not meet criteria for sepsis, so the pneumatosis was assumed NOT due to ischemic bowel, but more likely due to colonic obstruction and distention. She has had surgical consultation and has had a rectal tube placed, and she has been placed on antibiotics (ceftriaxone, metronidazole) but she has not shown improvement. She has extreme tenderness to palpation of her abdomen requiring morphine prn. She is not taking p.o. Lab Values: Laboratory Last Values WBC 11.3 10^3/ul (3.5-10.8) H 11/16/17 06:51 RBC 3.64 10^6/ul (4.0-5.4) L 11/16/17 06:51 Hgb 10.9 g/dl (12.0-16.0) L 11/16/17 06:51 Hct 33 % (35-47) L 11/16/17 06:51 MCV 90 fL (80-97) 11/16/17 06:51 MCH 30 pg (27-31) 11/16/17 06:51 MCHC 33 g/dl (31-36) 11/16/17 06:51 RDW 15 % (10.5-15) 11/16/17 06:51 Plt Count 244 10^3/ul (150-450) 11/16/17 06:51 MPV 8.1 um3 (7.4-10.4) 11/16/17 06:51 Neut % (Auto) 82.9 % (38-83) 11/15/17 04:45 Lymph % (Auto) 8.9 % (25-47) L 11/15/17 04:45 Lane % (Auto) 7.9 % (0-7) H 11/15/17 04:45 Eos % (Auto) 0.1 % (0-6) 11/15/17 04:45 Baso % (Auto) 0.2 % (0-2) 11/15/17 04:45 Absolute Neuts (auto) 13.6 10^3/ul (1.5-7.7) H 11/15/17 04:45 Absolute Lymphs (auto) 1.5 10^3/ul (1.0-4.8) 11/15/17 04:45 Absolute Monos (auto) 1.3 10^3/ul (0-0.8) H 11/15/17 04:45 Absolute Eos (auto) 0 10^3/ul (0-0.6) 11/15/17 04:45 Absolute Basos (auto) 0 10^3/ul (0-0.2) 11/15/17 04:45 Absolute Nucleated RBC 0 10^3/ul 11/15/17 04:45 Nucleated RBC % 0 11/15/17 04:45 INR (Anticoag Therapy) 0.84 (0.77-1.02) 11/15/17 04:45 APTT 25.2 seconds (26.0-36.3) L 11/15/17 04:45 Sodium 147 mmol/L (139-145) H 11/16/17 06:51 Potassium 4.1 mmol/L (3.5-5.0) 11/16/17 06:51 Chloride 122 mmol/L (101-111) H 11/16/17 06:51 Carbon Dioxide 16 mmol/L (22-32) L 11/16/17 06:51 Anion Gap 9 mmol/L (2-11) 11/16/17 06:51 BUN 44 mg/dL (6-24) H 11/16/17 06:51 Creatinine 0.87 mg/dL (0.51-0.95) 11/16/17 06:51 Est GFR ( Amer) 79.8 (>60) 11/16/17 06:51 Est GFR (Non-Af Amer) 62.0 (>60) 11/16/17 06:51 BUN/Creatinine Ratio 50.6 (8-20) H 11/16/17 06:51 Glucose 130 mg/dL (70-100) H 11/16/17 06:51 Lactic Acid 1.7 mmol/L (0.5-2.0) 11/15/17 04:45 Calcium 9.5 mg/dL (8.6-10.3) 11/16/17 06:51 Magnesium 1.9 mg/dL (1.9-2.7) 11/15/17 04:45 Total Bilirubin 0.30 mg/dL (0.2-1.0) 11/15/17 04:45 AST 18 U/L (13-39) 11/15/17 04:45 ALT 22 U/L (7-52) 11/15/17 04:45 Alkaline Phosphatase 79 U/L (34-104) 11/15/17 04:45 C-Reactive Protein 148.56 mg/L (< 5.00) H 11/15/17 04:45 Total Protein 6.6 g/dL (6.4-8.9) 11/15/17 04:45 Albumin 3.8 g/dL (3.2-5.2) 11/15/17 04:45 Globulin 2.8 g/dL (2-4) 11/15/17 04:45 Albumin/Globulin Ratio 1.4 (1-3) 11/15/17 04:45 Amylase 121 U/L (29-103) H 11/15/17 04:45 Lipase 30 U/L (11.0-82.0) 11/15/17 04:45 TSH 0.89 mcIU/mL (0.34-5.60) 11/15/17 04:45 Urine Color Yellow 11/15/17 09:19 Urine Appearance Cloudy 11/15/17 09:19 Urine pH 5.0 (5-9) 11/15/17 09:19 Ur Specific [place] 1.038 (1.010-1.030) H 11/15/17 09:19 Urine Protein 1+(30 mg/dl) (Negative) A 11/15/17 09:19 Urine Ketones Negative (Negative) 11/15/17 09:19 Urine Blood Negative (Negative) 11/15/17 09:19 Urine Nitrate Negative (Negative) 11/15/17 09:19 Urine Bilirubin Negative (Negative) 11/15/17 09:19 Urine Urobilinogen Negative (Negative) 11/15/17 09:19 Ur Leukocyte Esterase 3+ (Negative) A 11/15/17 09:19 Urine WBC (Auto) 3+(>20/hpf) (Absent) A 11/15/17 09:19 Urine RBC (Auto) Absent (Absent) 11/15/17 09:19 Ur Squamous Epith Cells Present (Absent) A 11/15/17 09:19 Urine Bacteria 1+ (Absent) A 11/15/17 09:19 Urine Glucose Negative (Negative) 11/15/17 09:19 Urine Ascorbic Acid * (Negative) A 11/15/17 09:19 - Objective Active Medications: Acetaminophen (Tylenol Tab*) 650 mg PO Q4H PRN PRN Reason: FEVER/PAIN Acetaminophen (Tylenol Supp*) 650 mg UT Q6H PRN PRN Reason: FEVER Last Admin: 11/17/17 09:27 Dose: 650 mg Aripiprazole (Abilify Tab*) 5 mg PO DAILY [facility] Last Admin: 11/17/17 09:26 Dose: Not Given Heparin Sodium (Porcine) (Heparin Vial(*)) 5,000 units SUBCUT Q8HR [facility] Last Admin: 11/17/17 14:01 Dose: 5,000 units Metronidazole/Sodium Chloride (Flagyl 500 Mg Ivpb*) 500 mg in 100 mls @ 100 mls /hr IVPB Q8H [facility]PL[facility] Last Admin: 11/17/17 09:09 Dose: 100 mls/hr Ceftriaxone Sodium 1 gm/ (Sodium Chloride) 50 mls @ 200 mls/hr IVPB Q24H [facility]PL[facility] Last Admin: 11/17/17 11:42 Dose: 200 mls/hr Levothyroxine Sodium (Synthroid Tab*) 100 mcg PO DAILY@0600 [facility] Last Admin: 11/17/17 06:00 Dose: Not Given Losartan Potassium (Cozaar Tab*) 50 mg PO DAILY [facility] Last Admin: 11/17/17 09:26 Dose: Not Given Morphine Sulfate (Morphine Oral Concentrate*) 5 mg SL Q4H PRN PRN Reason: PAIN Last Admin: 11/17/17 14:03 Dose: 5 mg Senna (Senokot Tab*) 2 tab PO BEDTIME [facility]PLACED [facility] Last Admin: 11/16/17 21:10 Dose: 2 tab Sertraline HCl (Zoloft*) 150 mg PO DAILY [facility] Last Admin: 11/17/17 09:26 Dose: Not Given Vital Signs: Vital Signs: Temp Pulse Resp BP Pulse Ox 99.8 F 86 24 146/63 96 11/17/17 11:56 11/17/17 11:56 11/17/17 14:03 11/17/17 11:56 11/17/17 11:56 Intake and Output: Intake & Output 11/15/17 11/16/17 11/17/17 11/18/17 06:59 06:59 06:59 06:59 Intake Total 366 Balance 366 Intake: IV Fluids 128 IVPB 188 Oral 50 Other: Estimated Void Medium Date of Last Bowel 11/17/17 Movement # Bowel Movements 1 Estimated Stool Amount Large # Voids 2 ADLs: Meal Record Start: 11/15/17 09: 31 Freq: DAILY@0900,1400,1800 Status: Active Protocol: Document 11/15/17 18:00 [id number] (Rec: 11/15/17 20:50 [id number] TELE-C08) Document 11/16/17 09:00 [id number] (Rec: 11/16/17 12:26 [id number] TELE-C03) Document 11/16/17 14:00 [id number] (Rec: 11/16/17 15:32 [id number] TELE-C01) Document 11/16/17 18:00 [id number] (Rec: 11/17/17 06:38 [id number] TELE-M01) Document 11/17/17 09:00 [id number] (Rec: 11/17/17 09:48 [id number] MED-C11) Intake and Output Start: 11/15/17 09: 31 Freq: DAILY@0600,1400,2200 Status: Active Protocol: Document 11/15/17 22:04 [id number] (Rec: 11/15/17 22:05 [id number] TELE-C08) Document 11/16/17 04:38 [id number] (Rec: 11/16/17 04:38 [id number] TELE-C35) Document 11/16/17 14:00 [id number] (Rec: 11/16/17 15:33 [id number] TELE-C01) Document 11/16/17 21:54 [id number] (Rec: 11/16/17 21:55 [id number] TELE-C03) Document 11/17/17 04:43 [id number] (Rec: 11/17/17 04:47 [id number] [facility]-C09) Document 11/17/17 06:00 [id number] (Rec: 11/17/17 06:00 [id number] [facility]-C09) General Impression: Obese woman with distended abdomen lying in bed, unresponsive, essentially comatose Eyes: No Scleral Icterus, PERRLA Neck: NL Appearance and Movements; NL JVP Cardiovascular: RRR Abdominal: - - distended, hyperactive BS, TTP Extremities: No Edema Neurological: - - unresponsive to voice and touch. Griamces with abdominal palpation. - Assessment Assessment: This woman with a history of chronic constipation and severe dementia has developed pneumatosis coli and is not improving with conservative measures; in fact her sensorium is deteriorating. She is essentially comatose at this time. Her 3 children and are here to discuss options, and I met with them. After an extensive family meeting reviewing her current quality of life prior to this admission, and the grave prognosis of this pneumatosis process, they elected to discontinue interventions aimed at life prolongationa and resort to comfort measures only. I discussed this with Dr. Quintero, and he is in agreement. We signed a new MOLST form for comfort measures only. I recommended scheduled Roxanol to be given round the clock. The patient is appropriate for hospice services with a primary diagnosis of pneumatosis intestinalis and a secondary diagnosis of coma/encephalopathy. I do not expect that she will survive more than two weeks. The family would prefer the [facility] residence, which is full, or will accept hospice services at [facility]. - Plan Consult Plan (MU): Hospice - Time On Unit Date of Evaluation: 11/17/17 Hospice Consult Time in: 13:30 Hospice Consult Time Out: 15:15 Hospice Consult Time Total: 105 > 50% of Time Spend In Counseling or Coordinating Care: Yes
[2017-11-17] MEDS ORDERED: Morphine ORAL CONCENTRATE* 5 MG/0.25 ML ORAL.SYRIN SL SCH (16:00)
[2017-11-17] MEDS: Morphine ORAL CONCENTRATE* 5 MG/0.25 ML ORAL.SYRIN SL SCH ×2 (17:17→20:03)
[2017-11-17] MEDS: LORazepam INJ* 2 MG/ML 1 ML VIAL IV PUSH PRN (18:08)
[2017-11-18] MEDS: Morphine ORAL CONCENTRATE* 5 MG/0.25 ML ORAL.SYRIN SL SCH ×4 (01:15→13:31)
[2017-11-18] MEDS: Morphine ORAL CONCENTRATE* 5 MG/0.25 ML ORAL.SYRIN SL PRN ×2 (02:53→10:07)
[2017-11-18] MEDS: Acetaminophen SUPP* 650 MG SUPP PR PRN (04:54)
[2017-11-18 08:14] VITALS: BP 151/62
--- NOTE | 2017-11-18 10:50 | DS ---
DISCHARGE SUMMARY: DATE OF ADMISSION: 11/15/17 DATE OF DISCHARGE: 11/18/17 DISPOSITION ON DISCHARGE: [facility]. PRIMARY DIAGNOSES: 1. Discharge to [facility] on hospice care. 2. Pneumatosis coli. SECONDARY DIAGNOSIS: Include advanced dementia. MEDICATIONS ON DISCHARGE: Include: 1. Morphine oral concentrate 5 mg every 4 hours standing, and morphine oral concentrate 5 mg every 2 hours as needed. 2. Ondansetron 4 mg every 6 hours as needed for nausea. 3. Lorazepam 0.4 mg every 4 hours as needed for agitation. 4. Atropine sulfate 2 mg sublingual every 2 hours as needed for terminal secretions. HISTORY OF PRESENT ILLNESS AND HOSPITAL COURSE: This is an 82-year-old female with past medical history as outlined in the history of present illness on the day of admission, who presented to [facility] after noting increased abdominal distention and pain at [facility]. At [facility], she was found with pneumatosis coli as well as worsening dementia to the point where she was no longer interactive and only responded to pain. Over the course of 48 hours, she deteriorated and became less responsive. Extensive conservations were held with family and myself as well as with our palliative care team. They opted for the pursuit of palliative measures only in accord with what the patient would have wanted. She was started on morphine every 4 hours standing as she would not indicate that she was in pain and primarily lie in the bed grimacing. She had no oral intake during the course of the hospital stay. Her prognosis is guarded and it is expected she may in the next days to weeks, more likely sooner. She will be discharged with above medications to deliver palliative care. Palliative care will sign on Tuesday, 2 days after discharge; however, we have been assured that [facility] staff will deliver the standing morphine and p.r.n. morphine should it be needed to ensure her comfort. FOLLOWUP INSTRUCTIONS: At followup, please ensure continued comfort measures in place. TIME SPENT: Greater than 45 minutes was spent on discharge of the patient; greater than half was spent [id number] with the patient and the family. [id number]/[facility] #: [id number] MTDD
[2017-11-18] MEDS: LORazepam INJ* 2 MG/ML 1 ML VIAL IV PUSH PRN (13:32)
== END 2017-11-18 14:15 | DRG 393 ==
LOC: ED 04:08 → MEDTELE 08:16 → OBSVTOIN 11-16 09:30 → MED 11-16 23:25
PROVIDERS: ADMIT Internal Medicine; ATTEND Internal Medicine
DX: K63.89 Other specified diseases of intestine (principal); R40.20 Unspecified coma; G93.40 Encephalopathy, unspecified; N39.0 Urinary tract infection, site not specified; E03.9 Hypothyroidism, unspecified; I10 Essential (primary) hypertension; F03.90 Unspecified dementia, unspecified severity, without behavioral disturbance, psychotic disturbance, mood disturbance, and anxiety; F32.9 Major depressive disorder, single episode, unspecified; Z66 Do not resuscitate; I25.10 Atherosclerotic heart disease of native coronary artery without angina pectoris; K59.09 Other constipation; Z51.5 Encounter for palliative care; B96.20 Unspecified Escherichia coli [E. coli] as the cause of diseases classified elsewhere; Z88.8 Allergy status to other drugs, medicaments and biological substances; Z90.710 Acquired absence of both cervix and uterus; Z90.49 Acquired absence of other specified parts of digestive tract
CPT/HCPCS: 36415; 71046; 74177; 80048; 80053; 81003; 81015; 82150; 83605; 83690; 83735; 84443; 85025; 85027; 85610; 85730; 86140; 87077; 87086; 87186; 87641; 99284; A9270-GY; G0378; J0696; J1644; J1956; J2060; J3480; J3490; Q9967